=== PATIENT | male | born 1950 | race African-American/Black ===

== ENCOUNTER 2023-11-26 10:45 | Outpatient (REF) | payer MEDICARE, SELFPAY ==
--- NOTE | ~2023-11-26 | MR_ITS ---
EXAMINATION: MR BRAIN WITHOUT AND WITH CONTRAST CLINICAL INFORMATION: Ringing in ear , right-sided. Vertigo. Headache. COMPARISON: None available. TECHNIQUE: Multiplanar, multisequence MRI of the brain was obtained before and after the intravenous administration of 8 mL gadolinium (Gadavist) without reported immediate complications. FINDINGS: No restricted diffusion. No intra-axial or extra-axial enhancing lesion and/or mass. No acute intracranial hemorrhage, mass effect, midline shift, hydrocephalus or herniation. Fatima-white matter differentiation is normal. Bilateral, multifocal patchy and confluent deep periventricular white matter hyperintense T2 FLAIR signal involving centrum semiovale, fields radiata, brainstem, brachii pontis/middle cerebellar peduncles and cerebellum. Prominence of the extra-axial CSF spaces, cerebral sulci, ventricles and cerebellar folia in keeping with central volume loss. Flow-void signal within the main cerebral vessels is normal. Sellar/suprasellar region demonstrated no signal abnormality or enhancing lesion. Craniocervical junction is intact and normal. Main cerebral venous sinuses are patent. MR/MR head/brain wo/w con IMPRESSION: No acute stroke/ischemia. 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 No enhancing intracranial mass.. Electronically signed by: Jeffrey Lorenz MD 01/01/2024 08:26 AM EDT
[2023-11-26] MEDS: gadobutroL 10 ML VIAL IVPUSH (11:59)
== END 2023-11-26 10:46 | disposition home or self-care (01) ==
LOC: HO.MRI 10:45
PROVIDERS: PCP Internal Medicine; Visit Provider Psychiatry & Neurology Neurology
DX: R42 Dizziness and giddiness (principal); H93.19 Tinnitus, unspecified ear; R51.9 Headache, unspecified
CPT/HCPCS: 70553; A9585

== ENCOUNTER → 2023-11-26 11:15 | Outpatient (BNV) | payer MEDICARE, SELFPAY | PROVIDERS: PCP Internal Medicine; Visit Provider Radiology Diagnostic Radiology | DX: R42 Dizziness and giddiness (principal); R51.9 Headache, unspecified | CPT/HCPCS: 70553 ==

== ENCOUNTER 2023-12-10 11:54 | Outpatient (REF) | payer MEDICARE, SELFPAY ==
[2023-12-10 14:30] LABS: Erythrocyte Sedimentation Rate 2 MM/HR (0-15)
[2023-12-11 05:18] LABS: Syphilis Screen Nonreactive (Nonreactive)
[2023-12-11 05:19] LABS: HIV AB/AG Nonreactive (Nonreactive); HIV Num 1 0.04 S/CO (0.00-0.99)
[2023-12-12 20:38] LABS: IgA 213 mg/dL (70-320); IgG 1149 mg/dL (600-1540); IgM 103 mg/dL (50-300)
[2023-12-12 21:34] LABS: Lyme Abs Screen <0.90 index
== END 2023-12-10 11:55 | disposition home or self-care (01) ==
LOC: HO.LAB 11:54
PROVIDERS: PCP Internal Medicine; Visit Provider Psychiatry & Neurology Neurology
DX: G93.49 Other encephalopathy (principal)
CPT/HCPCS: 36415; 82784; 85652; 86334; 86617; 86618; 86780; 87389